=== PATIENT | female | born 1960 | race Caucasian/White ===

== ENCOUNTER 2018-06-21 05:39 | Day surgery (SDC) | payer OTHER ==
[~2018-06-21] VITALS: Ht 167.6 cm; Wt 64.1 kg
[~2018-06-21 05:39] MED LIST: ALPR-475 PO; ASPI-496 PO; CALC625T23 PO; CARI350T14 PO; DIPH25CA61 PO; ESTR42.58 TP; FISH1CAP PO; FLUT9.9S NAS; HYDR-3237 PO; LISI1TAB3 PO; PANT40TA5 PO; SIMV40TA3 PO
[2018-06-21 06:00] VITALS: BP 134/92
[2018-06-21] MEDS ORDERED: LACTATED RINGERS 1,000 ML IV SCH ×2 (06:01→10:25)
[2018-06-21] MEDS ORDERED: BUPIVACAINE 0.25% ONE (07:08)
[2018-06-21] MEDS ORDERED: INDIGO CARMINE 0.8%, 5ML ONE (07:08)
[2018-06-21] MEDS ORDERED: THROMBIN 5,000 UNIT VIAL TP ONE ×2 (07:09→08:32)
[2018-06-21] MEDS ORDERED: NEOMY/POLYMYXIN B GU IRR. 1 ML IRRIG ONE (07:09)
[2018-06-21] MEDS ORDERED: EPINEPHRINE 1 MG/ML, 1ML ONE (07:09)
[2018-06-21] MEDS ORDERED: MIDAZOLAM 1 MG/ML, 2ML ONE (07:22)
[2018-06-21] MEDS ORDERED: FENTANYL PF 250 MCG/5ML ONE ×2 (07:22→08:21)
[2018-06-21] MEDS ORDERED: LIDOCAINE JELLY 2%, 30GM ONE (07:23)
[2018-06-21] MEDS ORDERED: LIDOCAINE-MPF 2% ,5ML ONE (07:25)
[2018-06-21] MEDS ORDERED: ACETAMINOPHEN 500 MG TABLET PO ONE (07:30)
[2018-06-21] MEDS ORDERED: ONDANSETRON ODT 8 MG PO ONE (07:30)
[2018-06-21] MEDS ORDERED: SCOPOLAMINE PATCH, 1.5MG PATCH.TD72 TD ONE (07:30)
[2018-06-21] MEDS ORDERED: GABAPENTIN 300 MG CAPSULE PO ONE (07:30)
[2018-06-21] MEDS ORDERED: HYDROmorphone 2 MG/ML, 1ML ONE (07:33)
[2018-06-21] MEDS ORDERED: HYDROmorphone 1 MG/ML, 1ML IV PRN (08:30)
[2018-06-21] MEDS ORDERED: FENTANYL PF 100 MCG/2ML IV PRN (08:30)
[2018-06-21] MEDS ORDERED: ALBUTEROL/IPRATROPIUM 2.5MG/0.5MG, 3 ML NPPB PRN (08:30)
[2018-06-21] MEDS ORDERED: ONDANSETRON 2MG/ML, 2ML IV PRN (08:30)
[2018-06-21] MEDS ORDERED: MIDAZOLAM 1 MG/ML, 2ML IV PRN (08:30)
[2018-06-21] MEDS ORDERED: OXYcodone 5 MG/5 ML ORAL.SOL UDC PO PRN ×2 (08:30→10:30)
[2018-06-21] MEDS ORDERED: PROMETHAZINE 25 MG SUPP PR PRN (08:30)
[2018-06-21] MEDS ORDERED: MEPERIDINE/PF 25MG/0.5ML IVPush PRN (08:30)
[2018-06-21] MEDS ORDERED: DIAZEPAM 5 MG/ML, 2ML IVPush PRN (08:30)
[2018-06-21] MEDS ORDERED: EPHEDRINE 50 MG/ML, 1ML IM PRN (08:30)
[2018-06-21] MEDS ORDERED: LABETALOL 5MG/ML, 20ML IV PRN (08:30)
[2018-06-21] MEDS ORDERED: ROCURONIUM 10MG/ML,5ML ONE ×2 (08:57→08:58)
[2018-06-21] MEDS ORDERED: GLYCOPYRROLATE 0.2MG/1ML, 5ML ONE (08:58)
[2018-06-21] MEDS ORDERED: NEOSTIGMINE 1 MG/ML, 10ML ONE (08:58)
[2018-06-21] MEDS ORDERED: DEXAMETHASONE 4 MG/ML, 1ML ONE (08:58)
[2018-06-21] MEDS ORDERED: PROPOFOL 10 MG/ML, 20ML ONE (08:58)
[2018-06-21] MEDS ORDERED: CEFAZOLIN 1,000 MG ONE (08:58)
[2018-06-21] MEDS ORDERED: KETOROLAC 30 MG/1 ML ONE (08:58)
[2018-06-21] MEDS ORDERED: PROMETHAZINE 25 MG SUPP PR ONE (10:30)
[2018-06-21] MEDS ORDERED: IBUPROFEN 600 MG TABLET PO PRN (10:30)
[2018-06-21] MEDS ORDERED: ONDANSETRON 2MG/ML, 2ML IVPush PRN (10:30)
[2018-06-21] MEDS ORDERED: OXYcodone 5 MG/5 ML ORAL.SOL UDC ONE (10:53)
[2018-06-21] MEDS: DIPHENHYDRAMINE 50 MG/ML, 1ML IVPush PRN ×2 (11:10→11:28)
[2018-06-21] MEDS ORDERED: FENTANYL PF 100 MCG/2ML ONE (11:10)
== END 2018-06-21 15:25 | disposition home or self-care (01) ==
LOC: OUT 05:39
PROVIDERS: ATTEND Obstetrics & Gynecology Female Pelvic Medicine and Reconstructive Surgery
DX: N81.4 Uterovaginal prolapse, unspecified (principal); N39.46 Mixed incontinence; E78.00 Pure hypercholesterolemia, unspecified; I10 Essential (primary) hypertension; Z98.51 Tubal ligation status; Z98.890 Other specified postprocedural states; Z72.89 Other problems related to lifestyle
CPT/HCPCS: 57260; 57288; 57425; 58542; 88307; C1771; C1781; J0171; J0690; J1100; J1170; J1200; J1885; J2250; J2704; J2710; J3010; J3490; J7120; Q0162